=== PATIENT | male | born 1975 | race African-American/Black ===

== ENCOUNTER → 2020-10-18 | Outpatient (CLI) | payer OTHER ==
--- NOTE | 2020-10-18 12:18 | RAD ---
EXAM: AP and lateral views of the left knee. DATE: 10/18/2020 9:18 AM INDICATION: Reason: ARTHRITIS IN KNEES. / Spl. Instructions: / History: COMPARISON: No Prior FINDINGS: No acute fracture or dislocation. No joint effusion. Joint spaces are preserved without significant degenerative/proliferative change. Small suprapatellar enthesophyte. IMPRESSION: No acute fracture or dislocation. Electronically signed by: Martín Gamino MD (10/18/2020 12:16 PM) [id number]
== END ==
LOC: RAD 09:02
PROVIDERS: ATTEND Anesthesiology Pain Medicine
DX: Z02.71 Encounter for disability determination (principal); M25.762 Osteophyte, left knee
CPT/HCPCS: 73560